=== PATIENT | female | born 1985 | race African-American/Black ===

== ENCOUNTER 2017-08-10 08:12 | Day surgery (SDC) | payer OTHER ==
[~2017-08-10] VITALS: Ht 165.1 cm; Wt 65.8 kg
[2017-08-10] MEDS ORDERED: SKIN ADHESIVE 0.7 GM EA TOP ONE (08:52)
[2017-08-10] MEDS ORDERED: BUPIVACAINE HCL/PF 0.5% (5MG/ML) 10ML ONE ×2 (08:52→11:27)
[2017-08-10] MEDS ORDERED: ROCURONIUM BROMIDE 10MG/ML VIAL 5ML IV ONE (09:45)
[2017-08-10] MEDS ORDERED: LACTATED RINGERS 1,000 ML IV ONE (09:45)
[2017-08-10] MEDS ORDERED: MIDAZOLAM HCL 2 MG/2 ML VIAL ONE ×2 (09:46→10:03)
[2017-08-10 09:54] LABS: UCG SCREEN NEGATIVE
[2017-08-10] MEDS ORDERED: NORE-136 PO (11:16)
[2017-08-10] MEDS ORDERED: PROPOFOL 200MG/20ML VIAL IV ONE (11:39)
[2017-08-10] MEDS ORDERED: ONDANSETRON HCL 4MG/2ML VIAL IV PRN (13:45)
[2017-08-10] MEDS ORDERED: FENTANYL CITRATE/PF 50MCG/ML 2ML VIAL IV PRN (13:45)
[2017-08-10] MEDS ORDERED: MEPERIDINE HCL/PF 25MG/ML CPJ IV PRN (13:45)
[2017-08-10 14:07] VITALS: BP 110/65
== END 2017-08-10 16:50 | disposition home or self-care (01) ==
LOC: OR 08:12
PROVIDERS: ATTEND Surgery
DX: K42.9 Umbilical hernia without obstruction or gangrene (principal)
CPT/HCPCS: 49652; 81025; C1781; G0168; J2175; J2250; J2405; J3490; S2900; J2704